=== PATIENT | male | born 1950 | race Hispanic/Latino ===

== ENCOUNTER 2018-03-30 19:28 | Emergency (ER) | payer MEDICARE ==
[~2018-03-30] VITALS: Ht 175.3 cm; Wt 77.7 kg
[~2018-03-30 19:28] MED LIST: AFRIN30 ML INH; ALBUTEROL INH; ALBUTEROL0.63 MG/3 INH; ASPIR-LOW81 MG PO; ASPIRIN PO; AZITHROMYCIN250 MG PO; CALCIUM CARBON500 MG PO; DAILY VITAMIN1 EAC3 PO; DULERA 200 MCG/13 GM INH; FEROSUL325 MG PO; FISH OIL 1,2001 EACH PO; FLONASE16 GM INH; NASOCORT; PROAIR HFA INH8.5 GM INH; RAPAFLO8 MG PO; SINGULAIR10 MG PO; TOBREX5 ML OP; ULTRAM50 MG PO; Z PAK PO
== END 2018-03-30 21:00 | disposition home or self-care (01) ==
LOC: FSED 19:28
DX: R00.2 Palpitations (principal); Z95.5 Presence of coronary angioplasty implant and graft
CPT/HCPCS: 71046; 84484; 93005; 99283

== ENCOUNTER 2018-07-27 10:48 | Emergency (ER) | payer MEDICARE ==
[~2018-07-27] VITALS: Ht 172.7 cm; Wt 77.6 kg
[2018-07-27] MEDS ORDERED: ASPIRIN 81 MG CHEW TAB PO ONE (11:15)
[2018-07-27 11:20] LABS: BASOPHILS # (AUTO) 0.1 (0.0-0.1); BASOPHILS % 0.9 % (0.0-1.0); EOSINOPHILS # (AUTO) 0.9 (0.0-0.4); EOSINOPHILS % 12.8 % (0.0-6.0); HEMATOCRIT 39.1 % (38.2-49.6); HEMOGLOBIN 13.3 g/dL (14.0-18.0); LYMPHOCYTES # (AUTO) 1.6 (1.0-3.2); LYMPHOCYTES % 23.4 % (18.0-39.1); MEAN CORPUSCULAR HEMOGLOBIN 31.8 pg (28-32); MEAN CORPUSCULAR VOLUME 93.5 fL (81-99); MONOCYTES # (AUTO) 0.6 (0.2-0.8); MONOCYTES % 8.3 % (4.4-11.3); NEUTROPHILS # (AUTO) 3.6 (2.1-6.9); NEUTROPHILS % 54.3 % (38.7-80.0); PLATELET COUNT 196 x10e3/uL (140-360); RED BLOOD COUNT 4.18 x10e6/uL (4.3-5.7); RED CELL DISTRIBUTION WIDTH 13.2 % (11.7-14.4)
--- NOTE | 2018-07-27 11:26 | Diagnostic Imaging Report ---
EXAMINATION: CHEST SINGLE (PORTABLE) INDICATION: \S\chest pain \S\Y COMPARISON: Chest radiograph 03/15/2017 FINDINGS: AP view TUBES and LINES: None. LUNGS: Lungs are well inflated. Lungs are clear. There is no evidence of pneumonia or pulmonary edema. PLEURA: No pleural effusion or pneumothorax. HEART AND MEDIASTINUM: The cardiomediastinal silhouette is unremarkable.. BONES AND SOFT TISSUES: No acute osseous lesion. Soft tissues are unremarkable. UPPER ABDOMEN: No free air under the diaphragm. IMPRESSION: No acute thoracic abnormality. Signed by: Dr. Billie Cho M.D. on 07/27/2018 11:23 AM
[2018-07-27 11:27] LABS: INR 1.14; PROTHROMBIN TIME 13.7 seconds (11.9-14.5)
[2018-07-27 11:28] LABS: PARTIAL THROMBOPLASTIN TIME 29.9 seconds (23.8-35.5)
[2018-07-27] MEDS ORDERED: DIPHENHYDRAMINE25 M1 PO (11:29)
[2018-07-27] MEDS ORDERED: CLOPIDOGREL75 MG PO (11:29)
[2018-07-27] MEDS ORDERED: CETIRIZINE HCL10 MG PO (11:29)
[2018-07-27] MEDS ORDERED: ATORVASTATIN CA20 MG PO (11:29)
[2018-07-27] MEDS ORDERED: METOPROLOL SUCC25 MG PO (11:29)
[2018-07-27 11:37] LABS: ALANINE AMINOTRANSFERASE 20 IU/L (0-55); ALBUMIN/GLOBULIN RATIO 0.9 (0.8-2.0); ALKALINE PHOSPHATASE 92 IU/L (40-150); ANION GAP 12.7 mmol/L (8-16); BLOOD UREA NITROGEN 16 mg/dL (7-26); BUN/CREATININE RATIO 19 (6-25); CALCIUM 8.6 mg/dL (8.4-10.2); CARBON DIOXIDE 23 mmol/L (22-29); CHLORIDE 107 mmol/L (98-107); CREATINE KINASE 82 IU/L (30-200); CREATININE, SERUM 0.85 mg/dL (0.72-1.25); EST GLOMERULAR FILTRATION RATE > 60 ML/MIN (60-); GLUCOSE 102 mg/dL (74-118); MAGNESIUM 1.9 MG/DL (1.3-2.1); POTASSIUM 3.7 mmol/L (3.5-5.1); SODIUM 139 mmol/L (136-145)
[2018-07-27] MEDS ORDERED: SODIUM CHLORIDE FLUSH 10 ML SYR INJ PRN (12:00)
[2018-07-27] MEDS ORDERED: METOPROLOL TARTRATE 25 MG TAB PO SCH (12:00)
[2018-07-27] MEDS ORDERED: NITROGLYCERIN 0.4 MG SUBL SL PRN (12:00)
[2018-07-27] MEDS ORDERED: ONDANSETRON HCL INJ 2 MG/ML VIAL IV PRN (12:00)
[2018-07-27] MEDS ORDERED: MORPHINE SULFATE 2 MG/ML SYR IV PRN (12:00)
[2018-07-27 12:08] LABS: COLOR,URINE YELLOW (YELLOW)
[2018-07-27 12:09] LABS: BILIRUBIN,URINE NEGATIVE (NEGATIVE); CLARITY,URINE CLEAR (CLEAR); KETONES,URINE NEGATIVE (NEGATIVE); LEUKOCYTE ESTERASE ,URINE TRACE (NEGATIVE); NITRITE,URINE NEGATIVE (NEGATIVE); PROTEIN,URINE DIPSTICK NEGATIVE (NEGATIVE); URINE UROBILINOGEN 0.2 mg/dL (0.2 - 1)
[2018-07-27 12:17] LABS: BACTERIA,URINE FEW /HPF; EPITHELIAL CELLS,URINE FEW /LPF; RBC,URINE 0-5 /HPF (0-5)
[2018-07-28] MEDS ORDERED: CLOPIDOGREL BISULFATE 75 MG TAB PO SCH (09:00)
[2018-07-28] MEDS ORDERED: ASPIRIN 81 MG ENTERIC COATED PO SCH (09:00)
== END 2018-07-27 13:46 | disposition left against medical advice (07) ==
LOC: ER 10:48 → UNDOADMOB 11:59 → ERHOLD 11:59
DX: R07.89 Other chest pain (principal); R00.1 Bradycardia, unspecified; R94.31 Abnormal electrocardiogram [ECG] [EKG]; I25.10 Atherosclerotic heart disease of native coronary artery without angina pectoris; E78.5 Hyperlipidemia, unspecified
CPT/HCPCS: 36415; 71045; 80053; 81001; 82550; 82553; 83735; 84484; 85025; 85610; 85730; 93005; 99284

== ENCOUNTER → 2018-10-24 | Day surgery (SDC) | payer MEDICARE ==
[2018-10-23 15:42] LABS: BASOPHILS % 0.4 % (0.0-1.0); EOSINOPHILS # (AUTO) 0.2 (0.0-0.4); EOSINOPHILS % 3.3 % (0.0-6.0); HEMATOCRIT 39.9 % (38.2-49.6); HEMOGLOBIN 13.4 g/dL (14.0-18.0); LYMPHOCYTES # (AUTO) 1.6 (1.0-3.2); LYMPHOCYTES % 21.3 % (18.0-39.1); MEAN CORPUSCULAR HGB CONC 33.6 g/dL (31-35); MEAN CORPUSCULAR VOLUME 95.2 fL (81-99); MONOCYTES # (AUTO) 0.8 (0.2-0.8); MONOCYTES % 10.7 % (4.4-11.3); NEUTROPHILS # (AUTO) 4.7 (2.1-6.9); NEUTROPHILS % 63.8 % (38.7-80.0); PLATELET COUNT 152 x10e3/uL (140-360); RED BLOOD COUNT 4.19 x10e6/uL (4.3-5.7); RED CELL DISTRIBUTION WIDTH 13.6 % (11.7-14.4)
[2018-10-23 16:03] LABS: ALANINE AMINOTRANSFERASE 18 IU/L (0-55); ALBUMIN 3.1 g/dL (3.5-5.0); ALBUMIN/GLOBULIN RATIO 1.1 (0.8-2.0); ALKALINE PHOSPHATASE 95 IU/L (40-150); ANION GAP 9.7 mmol/L (8-16); BLOOD UREA NITROGEN 19 mg/dL (7-26); BUN/CREATININE RATIO 22 (6-25); CALCIUM 8.8 mg/dL (8.4-10.2); CARBON DIOXIDE 29 mmol/L (22-29); CHLORIDE 106 mmol/L (98-107); CHOL/HDL RATIO 2.1 (3.9-4.7); CHOLESTEROL 142 MD/DL (0-199); CREATININE, SERUM 0.85 mg/dL (0.72-1.25); EST GLOMERULAR FILTRATION RATE > 60 ML/MIN (60-); GLUCOSE 86 mg/dL (74-118); HDL CHOLESTEROL 67 MG/DL (40-60); INR 0.91; LDL CHOLESTEROL 57 MG/DL (60-130); POTASSIUM 3.7 mmol/L (3.5-5.1); PROTHROMBIN TIME 13.1 seconds (11.9-14.5); SODIUM 141 mmol/L (136-145); TRIGLYCERIDES 92 MG/DL (0-149)
[2018-10-23 16:04] LABS: PARTIAL THROMBOPLASTIN TIME 27.5 seconds (23.8-35.5)
[2018-10-24] VITALS (12 sets, daily range): BP systolic 111–145; BP diastolic 69–80
[~2018-10-24] VITALS: Ht 172.7 cm; Wt 78.5 kg
[~2018-10-24] MED LIST changes: +AIRDUO RESPICLICK INH; +ATORVASTATIN CA20 MG PO; +CETIRIZINE HCL10 MG PO; +CLOPIDOGREL75 MG PO; +DIPHENHYDRAMINE25 M1 PO; +FENTANYL CITRATE/PF 100MCG/2 ML INJ ONE; +HEPARIN SOD (PORCINE) 1000 UNIT/ML 30ML ONE; +HEPARIN SOD/SOD CHLORIDE 2,000 ML ONE; +INCRUSE ELLIPTA INH; +IOPAMIDOL 370 MG/ML 200 ML INFUS..BTL INJ ONE; +LIDOCAINE HCL 2% LOCAL 20 ML VIAL ONE; +METOPROLOL SUCC25 MG PO; +MIDAZOLAM HCL 2 MG/2 ML VIAL ONE; +NITROGLYCERIN 0.4 MG SUBL ONE; +NITROGLYCERIN/D5W 200 MCG/ML 250 ML ONE; +SODIUM CHLORIDE 0.9% 1000ML 1,000 ML ONE; +VERAPAMIL HCL 2.5 MG/ML 2 ML VIAL ONE; +XOLAIR150 MG SC
--- NOTE | 2018-10-24 14:48 | Operative Report ---
DATE OF PROCEDURE: October 24, 2018 PROCEDURES PERFORMED 1. Left heart catheterization. 2. Selective coronary angiography. 3. Right radial TR band hemostasis. PROCEDURE INDICATIONS: Chest pain concerning for angina pectoris, history of CAD with prior stents with abnormal stress test. ESTIMATED BLOOD LOSS: Less than 10 mL. PROCEDURE SUMMARY: After consent was obtained, the patient was prepped and draped in a sterile fashion. Right radial site was locally infiltrated with 2% lidocaine. Access was obtained with 1 single anterior stick, and a 5-Divehi outer diameter Slender sheath was advanced. Verapamil 2.5 mg, 300 mcg of nitroglycerin and 5,000 units of heparin were administered via the sheath. A TIG catheter was advanced into the ascending aorta over a leading J wire for engagement of the left main and then the right coronary artery with angiography performed in multiple views. After catheter exchange over an exchange-length J wire, a 5-Divehi pigtail catheter was used to cross the aortic valve for left ventriculogram and hemodynamic measurements. The following findings were noted: 1. LV pressure is 133/5 with an end-diastolic pressure of 11. 2. The aortic pressure was 116/45 with a pullback from LV systolic to AO systolic of 116 to 116. There was no significant gradient across the aortic valve. 3. LV-gram reveals preserved left ventricular systolic function, normal regional wall motion and left ventricular ejection fraction of 55% to 60%. 4. Left main is large in caliber with luminal irregularities, and it gives an LAD and circumflex. 5. The LAD has proximal 30% stenosis and gives septal filter tank tender helper and diagonal, small caliber. The terminal apical LAD ends as a small caliber vessel with luminal irregularities. 6. The circumflex has 3 obtuse marginals, the 3rd of which has a 30% focal area of stenosis. 7. The right coronary artery is dominant. It has stents throughout the mid to distal segment, and 30% diffuse in-stent restenosis is observed. There are patent LPDA and RPLV at the end of this vessel. CONCLUSIONS: Mild in-stent restenosis of the RCA and mild disease of LAD and circumflex/OM. RECOMMENDATIONS: Medical therapy. Job#: [id number]
== END | disposition home or self-care (01) ==
LOC: CATH LAB 08:22
PROVIDERS: ATTEND Radiology Diagnostic Radiology
DX: I25.83 Coronary atherosclerosis due to lipid rich plaque (principal); R94.39 Abnormal result of other cardiovascular function study; I11.9 Hypertensive heart disease without heart failure; E78.5 Hyperlipidemia, unspecified; Z95.5 Presence of coronary angioplasty implant and graft; Z01.810 Encounter for preprocedural cardiovascular examination; Z01.812 Encounter for preprocedural laboratory examination; Z79.02 Long term (current) use of antithrombotics/antiplatelets; Z79.82 Long term (current) use of aspirin; Z82.49 Family history of ischemic heart disease and other diseases of the circulatory system
CPT/HCPCS: 36415; 80053; 80061; 85025; 85610; 85730; 93005; 93458; C1887; J1644; J2001; J2250; J7030; Q9967

== ENCOUNTER 2025-07-25 15:41 | Observation (INO) | payer MEDICARE ==
[~2025-07-25] VITALS: Ht 175.3 cm; Wt 78.5 kg
[~2025-07-25 15:41] MED LIST changes: -FENTANYL CITRATE/PF 100MCG/2 ML INJ ONE; -HEPARIN SOD (PORCINE) 1000 UNIT/ML 30ML ONE; -HEPARIN SOD/SOD CHLORIDE 2,000 ML ONE; -IOPAMIDOL 370 MG/ML 200 ML INFUS..BTL INJ ONE; -LIDOCAINE HCL 2% LOCAL 20 ML VIAL ONE; -MIDAZOLAM HCL 2 MG/2 ML VIAL ONE; -NITROGLYCERIN 0.4 MG SUBL ONE; -NITROGLYCERIN/D5W 200 MCG/ML 250 ML ONE; -SODIUM CHLORIDE 0.9% 1000ML 1,000 ML ONE; -VERAPAMIL HCL 2.5 MG/ML 2 ML VIAL ONE
[2025-07-25 15:45] VITALS: TEMP 98
[2025-07-25 16:17] LABS: BASOPHILS % 0.3 % (0.0-1.0); EOSINOPHILS % 7.2 % (0.0-6.0); LYMPHOCYTES % 19.7 % (18.0-39.1); MONOCYTES % 5.9 % (4.4-11.3); NEUTROPHILS % 66.7 % (38.7-80.0); RED CELL DISTRIBUTION WIDTH 13.2 % (11.7-14.4)
[2025-07-25 16:21] LABS: INR 0.98
[2025-07-25 16:31] LABS: EST GLOMERULAR FILTRATION RATE 77.0 ML/MIN (>=60)
[2025-07-25] MEDS: SODIUM CHLORIDE 0.9% 1000ML 1,000 ML IV STA (16:45)
[2025-07-25 17:09] LABS: CORONAVIRUS COVID-19 AG NEGATIVE (NEGATIVE)
[2025-07-25] MEDS ORDERED: ONDANSETRON HCL INJ 2MG/ML 2ML 2 MG/ML VIAL IV PRN (17:15)
[2025-07-25] MEDS ORDERED: NITROGLYCERIN 0.4 MG SUBL SL PRN (17:15)
[2025-07-25 19:48] VITALS: PULSE 76; RESP 18
[2025-07-25] MEDS: Morphine 2mg Syringe 2 MG/ML SYR IV PRN (20:34)
[2025-07-25 21:00] VITALS: BP 147/75; PULSE 67; TEMP 98.1; O2SAT 98
[2025-07-25] MEDS ORDERED: LEVOTHYROXINE100 MC1 IV (22:01)
[2025-07-26] VITALS: BP 149/82; PULSE 78; RESP 18; TEMP 98.9; O2SAT 96
[2025-07-26 05:53] VITALS: BP 151/82; PULSE 70; RESP 18; TEMP 98.6; O2SAT 96
[2025-07-26 05:55] LABS: BASOPHILS % 0.6 % (0.0-1.0); EOSINOPHILS % 8.6 % (0.0-6.0); LYMPHOCYTES % 17.1 % (18.0-39.1); MONOCYTES % 10.1 % (4.4-11.3); NEUTROPHILS % 63.2 % (38.7-80.0); RED CELL DISTRIBUTION WIDTH 13.3 % (11.7-14.4)
[2025-07-26 06:16] LABS: CHOL/HDL RATIO 2.4 (3.9-4.7); EST GLOMERULAR FILTRATION RATE 88.0 ML/MIN (>=60); LDL CHOLESTEROL 55.0 MG/DL (60-130)
[2025-07-26 08:00] VITALS: BP 143/70; PULSE 66; RESP 18; TEMP 98.1; O2SAT 97
[2025-07-26 08:50] VITALS: BP 143/70; PULSE 66; RESP 18; TEMP 98.1; O2SAT 97
[2025-07-26] MEDS: CLOPIDOGREL BISULFATE 75 MG TAB PO SCH (09:00)
[2025-07-26 09:42] VITALS: BP 143/70; PULSE 66
[2025-07-26] MEDS: ASPIRIN 81 MG ENTERIC COATED PO SCH (09:42)
[2025-07-26] MEDS: METOPROLOL SUCCINATE 25 MG TAB XL PO SCH (09:42)
[2025-07-26] MEDS: CLOPIDOGREL BISULFATE 75 MG TAB PO ONE (09:43)
[2025-07-26] MEDS ORDERED: ATORVASTATIN 20 MG TAB PO SCH (21:00)
[2025-07-30] MEDS ORDERED: PLAVIX75 MG PO (13:14)
[2025-07-30] MEDS ORDERED: ASPIRIN EC81 MG PO (13:14)
== END 2025-07-26 11:09 | disposition left against medical advice (07) ==
LOC: ER 15:59 → ERHOLD 17:18 → MED/SURG 19:58
PROVIDERS: ADMIT Internal Medicine; ATTEND Internal Medicine
DX: I24.9 Acute ischemic heart disease, unspecified (principal); I25.10 Atherosclerotic heart disease of native coronary artery without angina pectoris; Z95.5 Presence of coronary angioplasty implant and graft; E78.5 Hyperlipidemia, unspecified; Z53.29 Procedure and treatment not carried out because of patient's decision for other reasons; J45.909 Unspecified asthma, uncomplicated; E03.9 Hypothyroidism, unspecified; N40.0 Benign prostatic hyperplasia without lower urinary tract symptoms; Z87.01 Personal history of pneumonia (recurrent); Z79.02 Long term (current) use of antithrombotics/antiplatelets; Z79.899 Other long term (current) drug therapy
CPT/HCPCS: 36415 ×2; 71045; 80053 ×2; 80061; 82550 ×2; 83735; 83880; 84484 ×2; 85025 ×2; 85379; 85610; 85730; 87426; 93005; 99284; G0378 ×2; J2270; J2470; J7030

== ENCOUNTER 2025-08-02 06:18 | Day surgery (SDC) | payer MEDICARE ==
[2025-07-30 13:26] LABS: BASOPHILS % 0.9 % (0.0-1.0); EOSINOPHILS % 13.3 % (0.0-6.0); LYMPHOCYTES % 24.1 % (18.0-39.1); MONOCYTES % 7.0 % (4.4-11.3); NEUTROPHILS % 54.4 % (38.7-80.0); RED CELL DISTRIBUTION WIDTH 13.2 % (11.7-14.4)
[2025-07-30 13:50] LABS: CORONAVIRUS COVID-19 AG NEGATIVE (NEGATIVE); INR 0.89
[2025-07-30 13:59] LABS: CHOL/HDL RATIO 3.0 (3.9-4.7); EST GLOMERULAR FILTRATION RATE 69.0 ML/MIN (>=60); LDL CHOLESTEROL 74.0 MG/DL (60-130)
[2025-08-02] VITALS (11 sets, daily range): BP systolic 125–156; BP diastolic 69–89; PULSE 19–72; RESP 15–22; TEMP 97.5–97.8; O2SAT 95–100
[~2025-08-02] VITALS: Ht 175.3 cm; Wt 77.6 kg
[~2025-08-02 06:18] MED LIST changes: +ASPIRIN EC81 MG PO; +LEVOTHYROXINE100 MC1 IV; +PLAVIX75 MG PO
[2025-08-02] MEDS ORDERED: VERAPAMIL HCL 2.5 MG/ML 2 ML VIAL ONE (06:56)
[2025-08-02] MEDS ORDERED: HEPARIN SOD (PORCINE) 1000 UNIT/ML 30ML ONE (06:56)
[2025-08-02] MEDS ORDERED: LIDOCAINE HCL 2% LOCAL 20 ML VIAL ONE (06:57)
[2025-08-02] MEDS ORDERED: HEPARIN SOD/SOD CHLORIDE 2,000 ML ONE (06:57)
[2025-08-02] MEDS ORDERED: SODIUM CHLORIDE 0.9% 1000ML 1,000 ML ONE (06:57)
[2025-08-02] MEDS ORDERED: IOPAMIDOL 370 MG/ML 100 ML INFUS..BTL INJ ONE (06:57)
[2025-08-02] MEDS ORDERED: NITROGLYCERIN/D5W 200 MCG/ML 250 ML ONE (06:57)
[2025-08-02] MEDS ORDERED: FENTANYL CITRATE/PF 100MCG/2 ML INJ ONE (08:09)
[2025-08-02] MEDS ORDERED: MIDAZOLAM HCL 2 MG/2 ML VIAL ONE (08:09)
== END 2025-08-02 11:10 | disposition home or self-care (01) ==
LOC: CATH LAB 06:18
PROVIDERS: ATTEND Internal Medicine Cardiovascular Disease
DX: I25.110 Atherosclerotic heart disease of native coronary artery with unstable angina pectoris (principal); I25.83 Coronary atherosclerosis due to lipid rich plaque; T82.855A Stenosis of coronary artery stent, initial encounter; I11.9 Hypertensive heart disease without heart failure; E78.5 Hyperlipidemia, unspecified; I73.9 Peripheral vascular disease, unspecified; Y83.8 Other surgical procedures as the cause of abnormal reaction of the patient, or of later complication, without mention of misadventure at the time of the procedure; E03.9 Hypothyroidism, unspecified; Z11.52 Encounter for screening for COVID-19; Z01.812 Encounter for preprocedural laboratory examination; Z01.810 Encounter for preprocedural cardiovascular examination; Z01.818 Encounter for other preprocedural examination; Y83.1 Surgical operation with implant of artificial internal device as the cause of abnormal reaction of the patient, or of later complication, without mention of misadventure at the time of the procedure; Y92.009 Unspecified place in unspecified non-institutional (private) residence as the place of occurrence of the external cause
CPT/HCPCS: 36415; 76937; 80053; 80061; 85025; 85610; 85730; 87426; 93005; 93458; C1887; J1644; J2003; J2250; J3010; J7030; Q9967; 99152; 99153